=== PATIENT | male | born 1985 | race Caucasian/White ===

== ENCOUNTER 2017-02-20 16:30 | Emergency (ER) | payer MEDICARE, OTHER, SELFPAY | END 2017-02-20 17:59 | disposition home or self-care (01) | PROVIDERS: Emergency Provider Emergency Medicine; Visit Provider Emergency Medicine | DX: L02.12 Furuncle of neck (principal) | CPT/HCPCS: 10060; 87070; 87077; 87186; 99282; 99284 ==

== ENCOUNTER 2019-12-07 14:34 | Emergency (ER) | payer MEDICARE, OTHER, SELFPAY ==
[2019-12-07 14:47] VITALS: BP 128/92; PULSE 66; RESP 16; TEMP 36.8; O2SAT 100; BMI 27.2
--- NOTE | 2019-12-07 14:55 | XR_ITS ---
PROCEDURE: XR ELBOW LT MIN 3V CLINICAL INDICATION: injury Posttraumatic pain and swelling COMPARISON: No exams were available for comparison FINDINGS: No obvious fracture or dislocation. Artifact is present from overlying splint which could obscure a hairline fracture especially on the oblique view since the patient can't extend his arm. The joint spaces are well-preserved. No significant degenerative/arthritic changes. No erosive changes evident. Other findings:None. IMPRESSION: No definite fracture. Consider follow-up without the splint if pain persists. Dictated by: Hoang Junior MD 12/07/2019 15:55 Hoang Junior MD in [place] 12/07/2019 15:55
--- NOTE | 2019-12-07 15:25 | [facility].EDUPEXT ---
ED Disposition Clinical Impression: Sprain of left elbow Qualifiers: Encounter type: initial encounter Qualified Code(s): S53.402A - Unspecified sprain of left elbow, initial encounter Disposition: Home, Self-Care Condition on Discharge: Good Instructions: DI for Elbow Sprain Prescriptions: Hydrocod/Acet 5/325 mg [[place] 5/325mg tablet] 1 tab PO Q6HP PRN #7 tab PRN Reason: Moderate Pain Prescription Printed Referrals: PCP,No [Primary Care Provider] - Waleska Hernandez MD [Physician] - - Critical Care Critical Care Time: No Attestation: On 12/07/19, the high probability of a clinically significant, sudden or life threatening deterioration of the following system(s) required my full and direct attention, intervention and personal management. The time I documented below is in addition to time spent performing reported procedures but includes the following listed in this critical care notation. Medical Decision Making - Medical Records Medical records reviewed: Yes: I reviewed the patient's medical records. - Dante Inquiry Pt receiving controlled substance: Yes Dante was queried for this patient: No Risks and benefits of using a controlled substance: were discussed with pt by me Vital Signs: 12/07/19 14:47 12/07/19 15:41 Temperature 98.3 F Temperature Source Oral Pulse Rate [Right Radial] 66 58 L Respiratory Rate 16 Blood Pressure [Right Arm] 128/92 H 110/76 Blood Pressure Mean [Right Arm] 104 87 Blood Pressure Source [Right Arm] Automatic Cuff Blood Pressure Position [Right Arm] Sitting 02 Sat by Pulse Oximetry 100 97 Oxygen Delivery Method Room Air Room Air Orders (Tests/Meds): ED MEDICATIONS Discontinued Medications Generic Name Dose Route Start Last Admin Trade Name Freq PRN Reason Stop Dose Admin Hydrocodone Bitart/Acetaminophen 1 tab 12/07/19 15:24 12/07/19 15:42 [place] 10/325mg Tablet PO 12/07/19 15:25 1 tab ONCE ONE Administration - Radiology Data #1 Image(s): Elbow Image Reviewed: Yes I reviewed the patient's radiology results FINDINGS: No obvious fracture or dislocation. Artifact is present from overlying splint which could obscure a hairline fracture especially on the oblique view since the patient can't extend his arm. The joint spaces are well-preserved. No significant degenerative/arthritic changes. No erosive changes evident. Other findings:None. IMPRESSION: No definite fracture. Consider follow-up without the splint if pain persists. - Reevaluation(s) Time: 16:05 Reevaluation #1: On reevaluation, patient's pain is improved. He does need to follow-up with orthopedic surgery. Given strict return precautions. Verbalized understanding. Repeat examination does not show any signs of compartment syndrome or catastrophic abnormality. Medical Decision Narrative: 34-year-old male presents to the emergency department with left elbow pain. Patient is concerned that it may be fractured. Patient provided analgesics. Work-up initiated. Upper Extremity HPI - General Chief Complaint: Extremity Injury, Upper Stated Complaint: left arm 12/04 dem derby Time Seen by Provider: 12/07/19 14:50 Mode of Arrival: Ambulatory Limitations: No Limitations Description of Symptoms (Recalled from ER Triage Doc. by RN): pt presents to ed with left elbow pain after a accident on saturday night. pt states that he was seen at [facility] and was not told what was wrong with him. pt went to pmd office this morning and is referred to ortho but cant get in for 2-3 days. - History of Present Illness HPI narrative: This is a 34-year-old male presented to the emergency department with left elbow pain. Patient states that he was involved in a demolition [place] on Saturday when he hurt his left elbow. He states that he went to an outlying facility and was told it was broken. They placed him in a splint. Patient went to get repeat evaluation today, ho
[2019-12-07 15:41] VITALS: BP 110/76; PULSE 58; O2SAT 97
[2019-12-07 16:13] VITALS: BP 110/76; PULSE 58; RESP 16; TEMP 36.8; O2SAT 100
== END 2019-12-07 16:14 | disposition home or self-care (01) ==
PROVIDERS: Emergency Provider Emergency Medicine
DX: S53.402A Unspecified sprain of left elbow, initial encounter (principal); W22.8XXA Striking against or struck by other objects, initial encounter; Y92.89 Other specified places as the place of occurrence of the external cause; F17.210 Nicotine dependence, cigarettes, uncomplicated; Z88.0 Allergy status to penicillin
CPT/HCPCS: 73080; 99282